=== PATIENT | male | born 1960 | race African-American/Black ===

== ENCOUNTER 2016-10-19 10:08 | Emergency (ER) | payer OTHER, MEDICAID ==
[~2016-10-19] VITALS: Ht 182.9 cm; Wt 60.0 kg
[2016-10-19 10:10] VITALS: Ht 182.9 cm; Wt 60.0 kg
[2016-10-19] MEDS ORDERED: MAGNESIUM SULFATE 2 GM, MULTIVITAMINS 10 ML, THIAMINE 100 MG, FOLIC ACID 1 MG in SOD CH... IV STA (10:19)
[2016-10-19 10:53] LABS: ADD SCAN DIFF NO
[2016-10-19 10:56] LABS: BASOPHIL # 0.1 10^3/ul (0.0-0.1); BASOPHILS % 0.6 % (0.0-2.0); EOSINOPHILS # 0.2 10^3/ul (0.0-0.5); EOSINOPHILS % 2.3 % (0.0-7.0); HEMOGLOBIN 14.1 g/dl (14.0-18.0); LYMPHOCYTES # 1.8 10^3/ul (0.8-2.9); LYMPHOCYTES % 22.6 % (15.0-51.0); MEAN CORPUSCULAR HEMOGLOBIN 31.3 pg (29.0-33.0); MEAN CORPUSCULAR HGB CONC 33.6 g/dl (32.0-37.0); MEAN CORPUSCULAR VOLUME 93.1 fl (82.0-101.0); MEAN PLATELET VOLUME 11.5 fl (7.4-10.4); MONOCYTES % 12.7 % (0.0-11.0); NEUTROPHILS % 60.9 % (39.0-77.0); PLATELET COUNT 124 10^3/UL (140-415); RED BLOOD COUNT 4.51 10^6/ul (4.70-6.10); RED CELL DISTRIBUTION WIDTH 17.2 % (11.5-14.5); WHITE BLOOD COUNT 8.1 10^3/ul (4.8-10.8)
--- NOTE | 2016-10-19 11:00 | RADRPT ---
PROCEDURE: XR Chest AP portable CLINICAL INDICATION: A L O C TECHNIQUE: An AP portable radiograph of the chest was submitted. COMPARISON: None. FINDINGS: Support Hardware: None Cardiovascular: The cardiovascular silhouette appears unremarkable. Lung Cosme: Discoid atelectasis is seen at the right lung base with the lung cosme otherwise clear . Pleural Spaces: No pneumothorax or pleural effusion is identified. Osseous Structures: There is a mild dextroscoliotic curve to the thoracic spine. Soft Tissues: The soft tissues appear generous. IMPRESSION: 1. Discoid atelectasis seen at the right lung base. 2. Mild dextroscoliotic curve to the thoracic spine. Physician Sandy Date Time Electronically viewed and signed by Physician Sandy on 10/19/2016 11:00 /
[2016-10-19 11:07] LABS: INR 0.91; PROTIME 12.3 Sec (12.2-14.2)
[2016-10-19 11:08] LABS: PARTIAL THROMBOPLASTIN TIME 32.5 Sec (25.0-35.0)
[2016-10-19 12:11] LABS: ALBUMIN 4.9 g/dl (3.3-4.9)
[2016-10-19 12:12] LABS: CHLORIDE 104 mmol/L (97-110); POTASSIUM 3.8 mmol/L (3.5-5.1); SODIUM 144 mmol/L (135-144)
[2016-10-19 12:14] LABS: ANION GAP 19 (8-16); ASPARTATE AMINO TRANSFERASE 80 IU/L (15-46); BILIRUBIN,INDIRECT 0.5 mg/dl (0-1.1); BILIRUBIN,TOTAL 0.5 mg/dl (0.2-1.3); CARBON DIOXIDE 25 mmol/L (21-31); CREATININE 0.52 mg/dl (0.61-1.24)
[2016-10-19 12:15] LABS: ALANINE AMINOTRANSFERASE 85 IU/L (13-69); ALKALINE PHOSPHATASE 214 IU/L (42-121); BLOOD UREA NITROGEN 11 mg/dl (7-20); CALCIUM 9.4 mg/dl (8.4-10.2); GLUCOSE 95 mg/dl (70-220); TOTAL PROTEIN 8.4 g/dl (6.1-8.1)
[2016-10-19 12:18] LABS: ACETAMINOPHEN < 10.0 ug/ml (10.0-30.0); SALICYLATE < 1.0 mg/dl (5.0-30.0)
[2016-10-19 12:51] VITALS: BP 119/88; PULSE 82; RESP 17
[2016-10-19 13:10] LABS: ADD UMIC NO; URINE BILIRUBIN (Dip) NEGATIVE (NEGATIVE); URINE BLOOD (Dip) NEGATIVE (NEGATIVE); URINE COLOR LT. YELLOW (YELLOW); URINE GLUCOSE (Dip) NEGATIVE (NEGATIVE); URINE KETONES (Dip) NEGATIVE (NEGATIVE); URINE LEUKOCYTE ESTERASE (Dip) NEGATIVE (NEGATIVE); URINE NITRITE (Dip) NEGATIVE (NEGATIVE); URINE TOTAL PROTEIN (Dip) NEGATIVE (NEGATIVE); URINE UROBILINOGEN (Dip) 0.2 E.U./dL (0.1-1.0)
[2016-10-19 13:50] LABS: BARBITURATES Negative (NEGATIVE); BENZODIAZEPINES Positive (NEGATIVE); CANNABINOIDS Negative (NEGATIVE); COCAINE Negative (NEGATIVE); OPIATES Negative (NEGATIVE)
--- NOTE | 2016-10-28 19:05 | ERD ---
ER Documentation Chief Complaint Date/Time DATE: 10/28/16 TIME: 19:02 Chief Complaint BIB RA FOR EVAL OF GENERALIZED WEAKNESS. HPI This is a 56-year-old male that presents to the emergency department brought in by EMS complaining of generalized weakness. The patient indicates he has a history of alcohol abuse and consumed alcohol just prior to arrival. He denies any history of withdrawal seizures. He denies a headache or changes in vision. He denies any recent remote blunt or penetrating head chest or abdominal trauma. He denies any hemoptysis hematemesis or melanotic stools. He has no shortness of breath at rest or exertion. He has no chest pain or pressure that radiates to the neck arm back or jaw. He denies any fever shaking or chills. He denies any frequency urgency or dysuria. He states his main reason for feeling weak that he consumed a significant amount of alcohol and denies any localized weakness to the upper or lower extremities. ROS All systems reviewed and are negative except as per history of present illness. Medications Home Meds No Active Prescriptions or Reported Meds Allergies Allergies: Coded Allergies: No Known Allergy (Unverified , 10/19/16) PMhx/Soc History of Surgery: No Anesthesia Reaction: No Hx Neurological Disorder: Yes (cerebral palsy) Hx Respiratory Disorders: No Hx Cardiac Disorders: No Hx Psychiatric Problems: No Hx Miscellaneous Medical Probl: No Hx Alcohol Use: Yes (every day) Hx Substance Use: No Hx Tobacco Use: No Smoking Status: Never smoker Physical Exam Physical Exam Constitutional:Well-developed. Well-nourished. HEENT:Normocephalic. Atraumatic.Pupils were equal round reactive to light. Moist mucous membranes.No tonsillar exudates. Neck: No nuchal rigidity. No lymphadenopathy. No posterior cervical spine tenderness or step-offs. Respiratory: Not using accessory muscles of respiration.Lungs were clear to auscultation bilaterally. No rhonchi. No rales. No wheezing. Cardiovascular: Regular rate regular rhythm.No murmurs. No rubs were appreciated.S1, S2 normal. Distal pulses are palpable 2+ bilaterally. GI: Abdomen was soft. Nontender. Non Distended. No pulsatile abdominal masses or bruits. No rebound. No guarding. Bowel sounds were present and normal. Muscle skeletal: Full range of motion of both the upper and lower extremities bilaterally.Normal muscle tone.No assymetrical calf tenderness or swelling. Skin: No petechia, no purpura. No lesions on the palms or the soles of the feet. No maculopapular rash. NEURO: Patient was alert, awake, orientated x3.No facial droop. Gait observed and normal with no ataxia.Speech had regular rate and rhythm. No focal neurological deficits. Patient smelled of alcohol Results 24 hrs Laboratory Tests Test 10/19/16 10:38 10/19/16 12:45 White Blood Count 8.110^3/ul Red Blood Count 4.5110^6/ul Hemoglobin 14.1g/dl Hematocrit 42.0% Mean Corpuscular Volume 93.1fl Mean Corpuscular Hemoglobin 31.3pg Mean Corpuscular Hemoglobin Concent 33.6g/dl Red Cell Distribution Width 17.2% Platelet Count 37709^3/UL Mean Platelet Volume 11.5fl Neutrophils % 60.9% Lymphocytes % 22.6% Monocytes % 12.7% Eosinophils % 2.3% Basophils % 0.6% Nucleated Red Blood Cells % 0.0/100WBC Neutrophils # 5.010^3/ul Lymphocytes # 1.810^3/ul Monocytes # 1.010^3/ul Eosinophils # 0.210^3/ul Basophils # 0.110^3/ul Nucleated Red Blood Cells # 0.010^3/ul Prothrombin Time 12.3Sec Prothrombin Time Ratio 1.0 INR International Normalized Ratio 0.91 Activated Partial Thromboplast Time 32.5Sec Sodium Level 144mmol/L Potassium Level 3.8mmol/L Chloride Level 104mmol/L Carbon Dioxide Level 25mmol/L Anion Gap 19 Blood Urea Nitrogen 11mg/dl Creatinine 0.52mg/dl Glucose Level 95mg/dl Calcium Level 9.4mg/dl Total Bilirubin 0.5mg/dl Direct Bilirubin 0.00mg/dl Indirect Bilirubin 0.5mg/dl Aspartate Amino Transf (AST/SGOT) 80IU/L Alanine Aminotransferase (ALT/SGPT) 85IU/L Alkaline Phosphatase 214IU/L Total Protein 8.4g/dl Albumin 4.9g/dl Globulin 3.50g/dl Albumin/Globulin Ratio 1.40 Salicylates Level < 1.0mg/dl Acetaminophen Level < 10.0ug/ml Ethyl Alcohol Level 181.0mg/dl Urine Color LT. YELLOW Urine Clarity CLEAR Urine pH 6.0 Urine Specific [place] <=1.005 Urine Ketones NEGATIVE Urine Nitrite NEGATIVE Urine Bilirubin NEGATIVE Urine Urobilinogen 0.2 E.U./dL Urine Leukocyte Esterase NEGATIVE Urine Hemoglobin NEGATIVE Urine Glucose NEGATIVE% Urine Total Protein NEGATIVE Urine Opiates Screen Negative Urine Barbiturates Negative Urine Amphetamines Screen Negative Urine Benzodiazepines Screen Positive Urine Cocaine Screen Negative Urine Cannabinoids Negative Current Medications Medications (Trade) Dose Ordered Sig/[place] Route PRN Reason Start Time Stop Time Status Last Admin Dose Admin Magnesium Sulfate/ Multivitamins/ Thiamine HCl/ Folic Acid/Sodium Chloride (Magnesium Sulfate/Mvi Adult/ Vitamin B1/Folic Acid/NS) 1,015.2 ml @ 500 mls/ hr Q2H2M STAT IV 10/19/16 10:19 10/19/16 12:20 DC 10/19/16 11:41 Procedures/MDM This patient presented to the emergency department with generalized weakness and no focal neurological deficits on physical exam. IV access was established by nursing staff. The patient appeared clinically intoxicated and serum ethanol was elevated. The patient received a liter bolus of 0.9 normal saline. I provided a social work consult for the patient but he denied. He stated he has a place to live and is not currently homeless and felt comfortable being discharged upon clinical sobriety treatment The patient was discharged home in fair condition. They were instructed to return to the emergency department at any time if there was any worsening of their condition. The patient stated they would follow up with their PCP in the next 24-48 hours to initiate a suitable medication regimen under the care of their PCP as well as to allow their PCP to monitor any drug reactions. The patient was discharged home with prescriptions after they gave informed consent to the new medication. They were also fully informed by myself on the adverse effects and adverse drug interactions in order to provide adequate safeguards to prevent possible adverse reactions to medications. Departure Diagnosis: Primary Impression: Acute alcohol intoxication Complication of substance-induced condition: uncomplicated Qualified Code: F10.120 - Acute alcohol intoxication, uncomplicated Condition: Fair Patient Instructions: Generalized Weakness, Ethanol (Blood) EDMOND LEE Oct 28, 2016 19:05
== END 2016-10-19 16:27 | disposition home or self-care (01) ==
LOC: E/R 10:08
DX: F10.120 Alcohol abuse with intoxication, uncomplicated (principal); R40.4 Transient alteration of awareness
CPT/HCPCS: 36415; 71010; 80053; 80306; 80307; 81003; 85025; 85610; 85730; 96365; 96366; 99284; J3411; J3475; J7030

== ENCOUNTER 2018-09-15 19:23 | Emergency (ER) | payer OTHER ==
[~2018-09-15] VITALS: Wt 60.0 kg
[2018-09-15 19:26] VITALS: BP 108/71; PULSE 64; RESP 18
[2018-09-15] MEDS ORDERED: IBUPROFEN 600 MG TAB PO ONE (20:00)
[2018-09-15] MEDS ORDERED: HYDROCODONE/APAP (5/325) TAB PO ONE (20:00)
[2018-09-15] MEDS ORDERED: IBUP-1561 PO (20:50)
[2018-09-15] MEDS ORDERED: ACET1TAB40 PO (20:50)
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
== END 2018-09-15 21:10 | disposition home or self-care (01) ==
LOC: FTE 19:23
DX: M54.2 Cervicalgia (principal)
CPT/HCPCS: 72040; 72100